=== PATIENT | female | born 1995 | race African-American/Black ===

== ENCOUNTER 2017-01-12 14:44 | Emergency (ER) | payer OTHER ==
[~2017-01-12] VITALS: Ht 165.1 cm; Wt 101.2 kg
--- NOTE | 2017-01-12 16:05 | PD ---
HPI Chief Complaint abdominal pain, migraine (Anneliese Buck MD R1) Travel History International Travel<30 Days: No Contact w/Intl Traveler<30Days: No Known Affected Area: No (Anneliese Buck MD R1) History of Present Illness HPI Patient is a 21 year old at 33-1/7 weeks, EDC 03/01/17 by LMP c/w first trimester US per pt, who presents from Kim Alvarez's office for evaluation of abdominal pain. She denies leakage of fluid, vaginal bleeding, and feels baby move actively. She has [place] and round ligament pain but these pains feel different. She describes the pain as "Jeffrey Horses" with max intensity 8/ 10. The location is LUQ and LLQ, with no obvious trigger. She takes Tylenol without any significant improvement in pain. Frequency is every 30 minutes at the maximum, lasting no longer than 5 minutes each time. Associated neurologic symptoms are blurry vision, dizziness, and one episode of right sided numbness of the left arm and then left leg (numbness occurred only once this past weekend ). She does also have floaters in the eyes during migraines. Last BM was yesterday. She feels pelvic pressure but this has not worsened in the last few days. She notes she is well-hydrated and drinking 64oz of water daily. Review of symptoms negative for fevers, chills, nausea, vomiting, diarrhea, constipation, back pain, edema, weakness, dysuria, rashes. OB care has been unremarkable. pink slip from office was reviewed and all labs were wnl. BPs in office have been <120s/80s since establishing care in June 2016 for this . Urine dipstick in office today was normal. Para: 1 : 2 Last Menstrual Period: May 25, 2016 (Anneliese Buck MD R1) History Past Medical History Medical History: Denies Significant Hx (Anneliese Buck MD R1) Past Surgical History Narrative Surgical right finger pinning ~2012 Surgical History: No Previous Surgery (Anneliese Buck MD R1) Family History Family History: Negative (Anneliese Buck MD R1) Social History Alcohol Use: No Tobacco Use: No Substance Abuse: No (Anneliese Buck MD R1) Allergies-Medications (Allergen,Severity, Reaction): Coded Allergies: No Known Allergies (Unverified , 01/12/17) Review of Systems Except as stated in HPI: all other systems reviewed are Neg (Anneliese Buck MD R1) Physical Exam Narrative BP 135/71, P 101, temp 98.0F GENERAL: Well-nourished, well-developed female, obese. SKIN: Warm and dry. No rashes or bruises. HEAD: Normocephalic and atraumatic. EYES: No scleral icterus. No injection or drainage. ENT: No nasal drainage noted. Mucous membranes pink. Airway patent. NECK: Supple, trachea midline. No JVD. CARDIOVASCULAR: Regular rate and rhythm without murmurs, gallops, or rubs. RESPIRATORY: Breath sounds equal bilaterally. No accessory muscle use. ABDOMEN/GI: Abdomen soft, non-tender, bowel sounds present, no rebound, no guarding. Gravid to approx 34 weeks size. Pain not reproducible on exam GENITOURINARY: External Genitalia: intact and normal in appearance Dilatation: 0/0/-3/soft/posterior Membranes: intact Uterine Contractions: none noted on monitor FHT's: Category: 1 Baseline: 150 Reactive: to 180 Variability: mod Decels: absent EXTREMITIES: No cyanosis or edema. BACK: Nontender without obvious deformity. No CVA tenderness. NEUROLOGICAL: Awake and alert. psychiatric social worker supervisor II-XII intact. Photosensitivity, mild, during light reflex exam. PERRL, EOMI. Numbness to light touch reported of the right lateral hand. Motor and sensory grossly within normal limits. Five out of 5 muscle strength in distal muscle groups. Reflexes 1+ bilaterally at patella. Normal speech. (Anneliese Buck MD R1) Data Data Vital Signs Reviewed: Yes (Anneliese Buck MD R1) MDM Narrative Course / MDM 21 year old female at 33-1/7 weeks gestation with abdominal pain, headaches , and nonspecific neurologic symptoms. Intrauterine Category 1 tracing, reassuring No contractions on monitor Cervix closed, thick, high PO hydration Urine dipstick in office today normal per pink slip from Kim Alvarez Continue routine care with Kim Alvarez Abdominal Pain Differential includes [place], normal pains related to uterine distension , gas pains, abdominal migraine Encouraged to try simethicone OTC for gas pains Given reference materials for abdominal pain in and signs of labor Counseled to continue using Tylenol PRN Headache/Neurologic Symptoms Not occurring when patient evaluated in [facility] Differential includes migraine, tension headache Recommended Tylenol PRN May require further work-up if symptoms worsen Seen and discussed with Dr. Nuñez (Anneliese Buck MD R1) Attending Attestation The exam, history, and the medical decision-making described in the above note were completed with the assistance of the resident provider. I reviewed and agree with the findings presented. I attest that I had a [id number] encounter with the patient on the same day, and personally performed and documented my assessment and findings in the medical record. (Yumiko Nuñez MD) Diagnosis Diagnosis: Primary Impression: Abdominal pain during in third trimester Additional Impressions: with 33 completed weeks gestation Headache in , antepartum Disposition: 01 DISCHARGE HOME Condition: Stable Patient Instructions: Abdominal Pain in (ED), Early Labor Signs (ED) Anneliese Buck MD R1 Jan 12, 2017 16:05 Yumiko Nuñez MD Jan 12, 2017 17:00
[2017-01-12 16:12] VITALS: TEMP 98
== END 2017-01-12 16:21 | disposition home or self-care (01) ==
LOC: HOBED 14:44
DX: O26.93 Pregnancy related conditions, unspecified, third trimester (principal); R51 Headache; Z3A.33 33 weeks gestation of pregnancy
CPT/HCPCS: 59025

== ENCOUNTER 2017-01-22 22:30 | Emergency (ER) | payer OTHER ==
--- NOTE | 2017-01-22 23:23 | PD ---
HPI Travel History International Travel<30 Days: No Contact w/Intl Traveler<30Days: No Known Affected Area: No History of Present Illness HPI This patient is a 21-year-old 2 para 1 EDC is February 28, 2017 presently at 34 weeks and 4 days she presents the chief complaint of contractions. She states the contractions began about 7:30 PM the increased every 5 minutes at 8: 30 PM described as crampy her belly gets tight No rupture of membranes no vaginal bleeding the baby is active denies recent sexual intercourse no burning when she urinates no hesitancy no frequency no dribbling She did go grocery shopping today and was on her feet care with Kim Alvarez course as been unremarkable History Past Medical History Narrative Medical No known drug allergies denies major medical problems history previously of asthma no recent attacks Obstetric History Obstetric History First baby born October 24, 2012 male weight 7 lbs. 6 oz. vaginal delivery uncomplicated Past Surgical History Narrative Surgical Surgery on her finger Family History Family History: Negative Social History Alcohol Use: No Tobacco Use: No Substance Abuse: No Allergies-Medications (Allergen,Severity, Reaction): Coded Allergies: No Known Allergies (Unverified , 01/12/17) Review of Systems Gastrointestinal: Abdominal Pain (as per history of present illness) Physical Exam Narrative GENERAL: Well-nourished, well-developed patient. Alert oriented 3 cooperative SKIN: Warm and dry. HEAD: Normocephalic and atraumatic. CARDIOVASCULAR: Regular rate and rhythm without murmurs, gallops, or rubs. RESPIRATORY: Breath sounds equal bilaterally. No accessory muscle use. ABDOMEN/GI: Gravid consistent with stated gestational age no palpable contractions and no palpable contractions when she states that she's having a contraction no epigastric or right upper quadrant pain mild tenderness over the right and left round ligament Gravid to [-] weeks size 35 Fundal Height: [-] GENITOURINARY: External Genitalia: intact and normal in appearance BUS glands: [-] Cervix: [-] Posterior firm Dilatation: [-] 1 cm Effacement: [-] 0 Station: [-] Ballotable Presentation: [-] Vertex Membranes: [intact Uterine Contractions: [-] No contractions recorded or palpated FHT's: Category: [-] 1 Baseline: [-] 140 Reactive: [-] + Variability: [-] Moderate Decels: [-] None EXTREMITIES: No cyanosis or edema. 2+ reflexes NEUROLOGICAL: Awake and alert. Motor and sensory grossly within normal limits. Five out of 5 muscle strength in all muscle groups. Normal speech. Data Data Vital Signs Reviewed: Yes (blood pressures 103/53 pulse is 103 afebrile) [facility] Medical Record Reviewed: No Interpretation(s) 21-year-old at 34 weeks and 4 days [place] Barrera contractions Not in labor Urinalysis is negative(dipstick) Narrative Course / MDM Patient is feeling much better contractions have spaced out significantly has had only 1 We'll discharge the patient home By mouth fluid hydration kick counts Keep appointment with Kim Alvarez for next week Plan External monitor By mouth fluid hydration Reevaluation Diagnosis Diagnosis: Primary Impression: 34 weeks gestation of Additional Impression: [place] Barrera contractions Disposition: 01 DISCHARGE HOME Condition: Stable Larissa Chapman MD Jan 22, 2017 23:23
== END 2017-01-23 02:30 | disposition home or self-care (01) ==
LOC: HOBED 22:30
DX: O47.03 False labor before 37 completed weeks of gestation, third trimester (principal); Z3A.34 34 weeks gestation of pregnancy
CPT/HCPCS: 99282